=== PATIENT | female | born 1990 | race Caucasian/White ===

== ENCOUNTER 2023-03-01 13:46 | Outpatient (CLI) | payer SELFPAY ==
--- NOTE | 2023-03-01 14:00 | CRLHL7_ITS ---
For Patients: As a result of the Century Cures Act, medical imaging exams and procedure reports are released immediately into your electronic medical record. You may view this report before your referring provider. If you have questions, please contact your health care provider. INDICATION: 32 year-old female. First trimester scan, establish dates. COMPARISON: None. TECHNIQUE: Real-time rob-scale imaging of the pelvis was performed. FINDINGS: Sonographic imaging demonstrates a single living intrauterine gestation. The embryo demonstrates a regular cardiac rate measuring 178 beats per minute. The embryo`s crown-rump length measurement of 2.0 cm corresponds to a gestational age of 8 weeks 4 days with a sonographic due date of October 07, 2023. There is a normal-appearing yolk sac measuring 3 mm. There are no gross abnormalities noted within the embryo at this early state of development. The placenta has not yet developed. The gestational sac has a normal appearance and there is no evidence of a perigestational hemorrhage. The amount of fluid within the sac appears appropriate for gestational age. The cervix is closed. The myometrium appears normal. The ovaries are of normal size. The right ovary measures 3.7 x 2.2 x 2.0 cm. The right ovary contains a corpus luteum cyst of measuring 2.2 x 1.0 x 1.8 cm. The left ovary measures 2.4 x 1.2 x 1.2 cm. There are no suspicious fluid collections noted in the cul-de-sac. IMPRESSION: Normal first trimester OB ultrasound exam. Gestational age calculated at 8 weeks 4 days with a sonographic due date of October 07, 2023. Dictated by Arjun Latham MD @ 03/01/2023 4:12:20 PM (Electronically Signed)
== END 2023-03-01 13:47 | disposition home or self-care (01) ==
LOC: US 13:52
PROVIDERS: Visit Provider Advanced Practice Midwife
DX: Z34.91 Encounter for supervision of normal pregnancy, unspecified, first trimester (principal); Z3A.08 8 weeks gestation of pregnancy
CPT/HCPCS: 76817

== ENCOUNTER 2023-03-29 13:33 | Outpatient (CLI) | payer OTHER, SELFPAY | END 2023-03-29 13:34 | disposition home or self-care (01) | LOC: NFLDREF 03-31 08:58 | PROVIDERS: Visit Provider Advanced Practice Midwife | DX: Z34.81 Encounter for supervision of other normal pregnancy, first trimester (principal); Z3A.12 12 weeks gestation of pregnancy | CPT/HCPCS: 86592; 86703; 86762; 86787; 86803; 86850; 86900; 86901; 87086; 87340 ==

== ENCOUNTER 2023-05-24 12:42 | Outpatient (CLI) | payer OTHER, SELFPAY ==
--- NOTE | 2023-05-24 13:00 | CRLHL7_ITS ---
For Patients: As a result of the Century Cures Act, medical imaging exams and procedure reports are released immediately into your electronic medical record. You may view this report before your referring provider. If you have questions, please contact your health care provider. INDICATION: Evaluate anatomy. COMPARISON: 03/01/2023 TECHNIQUE: Real time rob scale imaging of the fetus was performed as well as color Doppler analysis of the umbilical vessels. FINDINGS: Sonographic imaging demonstrates a single living intrauterine gestation. Fetus demonstrates a regular cardiac rate of 137 beats per minute. Fetus has a variable position. The placenta lies posteriorly without evidence of placenta previa. The edge of the placenta is located 4.2 cm from the internal cervical os. Amniotic fluid volume appears normal. Single deepest vertical pocket: 4.4 cm. The cervix is closed and measures 4.2 cm in length. The composite ultrasound gestational age is calculated at 20 weeks 4 days with an estimated sonographic due date of 10/07/2023. The estimated weight is 384 grams which lies at the 71st %. The following biometric measurements were obtained: Biparietal diameter: 4.8 cm/20 weeks 3 days 46th% Head circumference: 17.8 cm/20 weeks 2 days 34th% Abdominal circumference: 16.6 cm/21 weeks 4 days 80th% Femur length: 3.3 cm/20 weeks 2 days 35th% The HC/AC ratio measures: 1.08 range (1.07-1.25) On anatomic survey, there is a normal appearance of the cerebral ventricles, cavum septi pellucidi, cisterna magna and cerebellum. The nose, lips, and facial profile appear normal. The cervical, thoracic and lumbar spine are well visualized and appear normal. There is a normal four-chamber heart view and the left and right ventricular outflow tracts appear normal. The diaphragm and stomach appear normal. The kidneys and bladder also appear normal. There is a normal three-vessel cord and cord insertion site. The four extremities appear normal. IMPRESSION: Normal OB ultrasound exam with concordance of clinical and sonographic dating. No intrinsic abnormalities noted on anatomic survey. Dictated by Eric Naidu MD @ 05/26/2023 6:34:40 AM (Electronically Signed)
== END 2023-05-24 12:43 | disposition home or self-care (01) ==
LOC: US 12:42
PROVIDERS: Visit Provider Advanced Practice Midwife
DX: Z34.92 Encounter for supervision of normal pregnancy, unspecified, second trimester (principal); Z3A.20 20 weeks gestation of pregnancy
CPT/HCPCS: 76805

== ENCOUNTER 2023-07-19 13:36 | Outpatient (CLI) | payer OTHER, SELFPAY | END 2023-07-19 13:37 | disposition home or self-care (01) | LOC: NFLDREF 07-22 07:39 | PROVIDERS: Visit Provider Advanced Practice Midwife | DX: Z34.93 Encounter for supervision of normal pregnancy, unspecified, third trimester (principal); Z3A.28 28 weeks gestation of pregnancy | CPT/HCPCS: 86592 ==

== ENCOUNTER 2023-09-15 15:34 | Outpatient (CLI) | payer MEDICAID, SELFPAY ==
[2023-09-16 13:07] LABS: Strep B DNA Probe Negative (Negative); Strep B Susceptibility Needed? No
== END 2023-09-15 15:35 | disposition home or self-care (01) ==
LOC: NFLDREF 15:35
PROVIDERS: Visit Provider Advanced Practice Midwife
DX: Z34.93 Encounter for supervision of normal pregnancy, unspecified, third trimester (principal); Z3A.37 37 weeks gestation of pregnancy
CPT/HCPCS: 87081; 87653

== ENCOUNTER 2023-09-17 08:31 | Outpatient (CLI) | payer MEDICAID, SELFPAY ==
[2023-09-17 08:36] VITALS: PULSE 80; O2SAT 97
[2023-09-17 08:38] VITALS: BP 100/65; PULSE 77; RESP 16; TEMP 36.8
[2023-09-17 08:41] VITALS: PULSE 79; O2SAT 96
[2023-09-17 08:46] VITALS: PULSE 72; O2SAT 97
[2023-09-17 08:51] VITALS: PULSE 82; O2SAT 97
--- NOTE | 2023-09-17 10:39 | PC.OBNST ---
NST Note NST Note Start: 09/17/23 08:36 Freq: ONCE Status: Active Protocol: Document 09/17/23 10:37 LG (Rec: 09/17/23 10:39 LG [id number]) NST Note 4 Para (# of births) 2 EDC 10/08/23 Gestational Age In Weeks & Days 37 Weeks & 0 Days Patient Presented with Complaint(s) of Other Other Complaints Scheduled ECV Reactive Yes Appropriate for Gestational Age Yes RN Ene,RN Date 09/17/23 Reactive Yes Appropriate for Gestational Age Yes JUWAN Castelan,JUWAN Date 09/17/23 OB NST charge Yes Complete NST Note via Write Note Yes Patient presented for scheduled external cephalic version. Provier performed ultrasound at bedside and found lie to be vertex. No ECV needed. Orders to discharge patient to home. See flowsheet and provider notes for additional details. The provider's electronic signature indicates the NST is reactive/appropriate for gestational age. *Note to provider: If an addendum is required, open the patient's chart and click on the note under the Nurse/Allied Health tab.
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
== END 2023-09-17 10:00 | disposition home or self-care (01) ==
LOC: OB OUT 08:32 → OB 08:33
PROVIDERS: PCP Obstetrics & Gynecology; Visit Provider Obstetrics & Gynecology
DX: O32.0XX0 Maternal care for unstable lie, not applicable or unspecified (principal); Z3A.37 37 weeks gestation of pregnancy
CPT/HCPCS: 59025; 76815; G0463

== ENCOUNTER 2023-10-14 22:54 | Inpatient (IN) | payer MEDICAID, SELFPAY ==
[2023-10-14 22:17] VITALS: BP 113/70; PULSE 84; PULSE 88; O2SAT 97
[2023-10-14 22:46] VITALS: BMI 35.3
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
[2023-10-15] VITALS (16 sets, daily range): BP systolic 96–114; BP diastolic 53–75; PULSE 60–98; RESP 16; TEMP 36.4–37.2; O2SAT 96–97
[2023-10-15] MEDS: OXYTOCIN 10 UNIT/ML INJ IM (04:12)
[2023-10-15] MEDS: LIDOCAINE 1 % PF 30 ML INJECTION (04:20)
--- NOTE | 2023-10-15 04:47 | W.PM.OBVAGDE ---
OB Procedure Vag Delivery Mother Details Mother Details: The patient is a 33 year-old, 4, now Para 3, admitted on 10/14/23 at 40.6 weeks gestation. Delivery occurred 10/15/23 at 41.0 weeks. : 4 Para: 3 Weeks Gestation: 41.0 Admission Date: 10/14/23 Additional Details Amniotic Membrane Status: SROM Amniotic Membrane Rupture Date: 10/15/23 Amniotic Membrane Rupture Time: 03:53 Amniotic Membrane Fluid Description: Clear Analgesia/Anesthesia Type: Local (for repair only) Waterbirth: Yes Pitcoin: No (AMTSL only) Intrapartal Events: None Labor Onset: 23:00 Complete: 03:53 (assumed with SROM/pushing) Pushin:54 Heart: heart tones during second stage were difficult to dopple as was . WNL prior to that. Delivery Details Delivery Date: 10/15/23 Delivery Time: 04:02 Route of delivery: Gender: Male Infant Viability: Alive; Heart Rate Present Position at Delivery: OA Delivery Details: Magaly arrived with mild ctx, pausing when they occurred. Within a few hours, ctx closer together and breathing through them. She got in the tub, and did get some relief from this. CNM at bedside, and she noted increased pressure/urge to push at the peak of the contraction. Shortly after SROM occurred, clear fluid. Spontaneous pushing noted at this time, and . She pushed kneeling, and did lean back as head fully crowned. ? Spontaneous vaginal?delivery at 0402 of?a viable?male infant.??Delivered in vertex OA position.??Shoulders delivered easily.??Infant placed on maternal abdomen.??Infant noted to be floppy and not crying. Cord?was clamped and cut immediately, and infant to prewarmed open warmer for further assessment.??See nurses notes for further information? Shoulder dystocia: no? Nuchal cord: yes, times one, tight, but reducible before delivery.? Meconium stained?fluid: no? Water : yes? ? ? 6 at 1 minute and 9 at 5 minutes, 9 at 10 minutes.? ? Placenta?delivered spontaneously and?complete?at 0414 with a?3 vessel?cord.??Trailing membranes easily teased out with ring forceps. Bleeding controlled with fundal massage and?pitocin?for AMTSL.? ? Mother and were stable after?delivery.? ? Lacerations:? 2nd degree, repaired with 3-0?vicryl.?? ? Bleeding?post?delivery?was: minimal. ?The fundas was firm to palpation.? Blood loss: 300 ml EBL in tub, 75 ml QBL in bag. 375 ml total.? Blood loss measurement type: QBL? EBL? ? Sponge,?lap?and needles counts are correct.? Mother and infant were stable after?delivery.? 1 Minute Interval Total Score: 6 5 Minute Interval Total Score: 9 10 Minute Interval Total Score: 9 Additional Details Shoulder Dystocia: No Placenta Delivery Time: 04:14 Placental Delivery Description: Spontaneous Delivery repair: Vicryl Procedure Done: Global Blood Loss: 375 Laceration: Perineal - 2nd Degree Blood Loss Measurement Type: EBL Sponge/Need Count Correct: Yes Cord Vessel Description: 3 Vessels, Nuchal Cord, Tight and Reduced Event Summary Status: Mother and were stable after delivery. Disposition: floor
[2023-10-15] MEDS: IBUPROFEN 600 MG TABLET PO ×3 (06:18→19:27)
[2023-10-15] MEDS: DOCUSATE SODIUM 100 MG CAPSULE PO (09:39)
[2023-10-16] MEDS: IBUPROFEN 600 MG TABLET PO (03:44)
[2023-10-16 03:45] VITALS: BP 101/67; PULSE 70; RESP 16; TEMP 36.3; O2SAT 96
--- NOTE | 2023-10-16 07:30 | PM.OBDSVD1 ---
DS: Providers Provider Time Seen by Provider: 07:30 Date Seen: 10/16/23 Date of admission: 10/14/23 22:54 Primary care physician: Not a Local Provider Admitting Clinician: Brandi Albarado CNM Attending Physician on discharge: Brandi Albarado CNM Date of Discharge: 10/16/23 DS: Diagnosis Discharge Diagnosis (1) state: Status: Acute (2) NVD (normal vaginal delivery): Status: Acute (3) Lactating mother: Status: Acute (4) Second degree laceration of perineum, delivered, current hospitalization: Status: Acute Exam Narrative: Exam Narrative: VSS, afebrile GENERAL APPEARANCE: ?normal affect, alert, no distress MOOD: ?appropriate HEENT: normocephalic, neck supple, full ROM CHEST: ?Symmetrical chest wall movement. ?Normal respiratory effort. ?Clear to auscultation HEART: ?regular rate and rhythm ABDOMEN: ?soft, non-tender. Uterine fundus is firm, at Umbilicus, Midline and is appropriate for the stage of recovery. ?Bowel sounds present. PERINEUM: ?mild edema of the perineum, there is a 2nd degree laceration that is healing well. EXTREMITIES: ?normal and trace edema Const: Vital Signs, click to edit/add: Vital Signs - 24 hr 10/15/23 08:27 10/15/23 11:55 10/15/23 16:17 Temperature 97.5 F L 98.9 F 98.2 F Pulse Rate [Left P ulse Oximeter] 94 60 70 Respiratory Rate 16 16 16 Blood Pressure [Le ft Arm] 107/69 106/70 114/75 Pulse Oximetry 97 96 97 Oxygen Delivery Me thod Room Air Room Air Room Air 10/15/23 19:31 10/15/23 22:57 10/16/23 03:45 Temperature 97.7 F 97.9 F 97.3 F L Pulse Rate [Left P ulse Oximeter] 87 70 Respiratory Rate 16 16 16 Blood Pressure [Le ft Arm] 107/70 104/69 101/67 Pulse Oximetry 97 97 96 Oxygen Delivery Me thod Room Air Room Air Room Air Documenting provider has reviewed patient's vital signs: yes OB - DS: Summary Hospital Course Hospital Course: Magaly is a 33 y.o. G 4 P 3 who was admitted to L & D for labor. ?She had an uncomplicated NVD The patient feels well. ?The pain is well controlled with current medications. ?She has no new complaints. ?She is breast feeding and reports things are going well.? the patient has done well.? Vitals have been stable.? She has remained afebrile.? Has a good appetite, is tolerating a general diet. ?She is voiding without difficulty.? She is passing gas and has not had a bowel movement.? She is ambulating and denies any dizziness.? Has Small amount of rubra lochia. She is planning partner vasectomy for prevention. Condoms if needed until done. Problems: none plan: Discharge home with baby. Follow up in 2 weeks and 6 weeks. , may follow up with if needed Hx of anxiety and depression. Meds have not worked well in the past. -already restarted with her therapist -aware to call if therapist is not enough. Peripartum Data Infant delivery method: Vaginal Laceration description: Perineal - 2nd Degree complications: none [place] Infant Gender: Male Infant Discharge Plan: Home Status at Discharge Functional status at discharge: independent ambulation Overall status at discharge: patient is progressing back to baseline Time Spent with Patient Time attestation: Total time spent providing and/or coordinating discharge services: Time spent: Less than 30 minutes Discharge Plan Discharge Disposition: Home, Self-Care Date of Admission: 10/14/23 22:54 Attending Provider on Discharge: Brandi Albarado Primary Care Provider: Provider,Not a Local Condition: Stable Anticipated Discharge Date/Time: 10/16/23 09:00 Discharge Medications: New docusate sodium 100 mg Capsule 100 mg PO BID PRNQty: 100 0RF Rx Instructions: Take 1 cap 1-2 times a day as needed for constipation ibuprofen 600 mg Tablet 600 mg PO Q6H PRNQty: 60 0RF Continued L.acidoph,saliva-B.bif-S.therm [Acidophilus Probiotic Blend] 175 mg capsule 1 cap PO QDAY cholecalciferol (vitamin D3) 250 mcg (10,000 unit) capsule 250 mcg PO QDAY magnesium 250 mg tablet 500 mg PO QDAY zinc gluconate 50 mg tablet 50 mg PO QDAY DHA 200 mg capsule PO Discontinued ferrous sulfate 325 mg (65 mg iron) tablet,delayed release (DR/EC) 325 mg PO QDAY metoclopramide HCl [Reglan] 10 mg tablet 10 mg PO Q6H PRN (Reason: Headaches) Qty: 20 0RF Discharge Orders: Discharge Order (Routine); Ordered 10/16/23 Ordered By: Brandi Albarado Patient Education: OB Over the Counter Medication Information, OB Vaginal/Breast Feeding Additional Instructions: Follow up in 2 weeks and 6 weeks. Activity Level: Activity as Tolerated Discharge Diet: Regular Follow Up Appointments: Provider,Not a Local [Primary Care Provider] - Forms: [facility] Info Instructions
[2023-10-16 08:13] VITALS: BP 112/67; PULSE 62; RESP 16; TEMP 36.7; O2SAT 96
== END 2023-10-16 11:00 | disposition home or self-care (01) | DRG 560 ==
LOC: OB OUT 22:55 → OB 22:55
PROVIDERS: Admitting Provider Advanced Practice Midwife; Visit Provider Advanced Practice Midwife
DX: O48.0 Post-term pregnancy (principal); O70.1 Second degree perineal laceration during delivery; O99.344 Other mental disorders complicating childbirth; F41.9 Anxiety disorder, unspecified; F32.A Depression, unspecified; Z37.0 Single live birth; Z3A.40 40 weeks gestation of pregnancy
CPT/HCPCS: A9270; J2001; J2590